=== PATIENT | male | born 2000 ===

== ENCOUNTER 2024-04-10 15:13 | Outpatient (AMB) | payer OTHER, SELFPAY ==
--- NOTE | 2024-04-10 15:14 | MHC.OFFWIV ---
Intake Vital Signs 04/10/24 15:15 Height 5 ft 11 in Weight 214 lb BMI 29.8 BP 128/86 Blood Pressure Location Lt brachial Position Sitting Pulse 93 Pulse Source Pulse Oximeter Temp 98.5 F Temp Source Oral Pulse Oximetry (%) 96 Oxygen Delivery Method Room Air Intake Visit Reasons: Persistent cough Intake Note: pt c/o persistent cough. Ongoing for since 04/01. Progressively getting worse Patient Tobacco Use Status: Never used Tobacco Allergies No Known Allergies Allergy (Verified 04/10/24 15:15) HPI HPI Comments History of Present Illness Details Patient is a 23-year-old male complaining of a cough since April 01. He states his cough is so bad for the last few nights that he has actually vomited because he can not stop coughing. He states he also has a headache and some head congestion. He denies any fevers, shortness of breath or chest pain. He denies any sinus pain or ear pain PFSH Social History Patient Tobacco Use Status: Never used Tobacco Review of Systems Const All systems reviewed & are unremarkable except as noted in HPI and below Physical Exam Vital Signs: Last Vital Signs Temp 98.5 F 04/10/24 15:15 Pulse 93 04/10/24 15:15 BP 128/86 04/10/24 15:15 Pulse Ox 96 04/10/24 15:15 Oxygen Delivery Method Room Air 04/10/24 15:15 BMI result Body Mass Index 29.8 Const General: cooperative, healthy appearing, comfortable and no acute distress Orientation/consciousness: patient oriented x3 Limitations: no limitations HEENT Head: Yes normal to inspection Ears: hearing grossly normal bilaterally, external ears normal and TM's normal bilaterally General nose exam: Normal external nose present, Normal nares present and No nasal discharge present Face and sinus: Yes normal facial exam and Yes sinuses nontender Mouth: Normal oral and palatal mucosa present and moist mucous membranes Throat: Yes tonsils normal, Yes uvula midline and Yes posterior oropharynx abnormal (Erythema) Eyes General: appearance normal, both eyes and all related structures Neck Neck: Yes normal visual inspection Resp Effort & Inspection: normal respiratory effort, able to speak in complete sentences, Actively coughing, no respiratory distress, not tachypneic, no tripod positioning and no use of accessory muscles Auscultation: clear to auscultation bilaterally Cardio Rate: regular rate Rhythm: regular rhythm Heart sounds: normal S1 and S2 Skin General skin exam: no rashes or lesions noted Neuro General: patient oriented x3 Extrem General: Yes normal to inspection and Yes no clubbing, cyanosis or edema Assessment & Plan Assessment & Plan (1) Atypical pneumonia: Code(s): J18.9 - Pneumonia, unspecified organism Plan: Educated patient to take [id number] medications to treat his symptoms, also explained how to use inhaler when he has coughing fits. We will send Z-Ivan as this sounds like an atypical pneumonia Medications: New albuterol sulfate 90 mcg/actuation 2 puffs inhalation Q6H PRN 8.5 grams 0RF shortness of breath or wheezing or cough azithromycin For 250 mg dose pack: take 500 mg today (day 1), then 250 mg for 4 days (days 2-5) PO 6 tabs 0RF Coding Level of Care Code New Pt Level 3 (23414) Diagnoses Atypical pneumonia J18.9
[2024-04-10 15:15] VITALS: BP 128/86; PULSE 93; TEMP 36.9; O2SAT 96; BMI 29.8
== END 2024-04-10 15:50 | disposition home or self-care (01) ==
PROVIDERS: Visit Provider Physician Assistant
DX: J18.9 Pneumonia, unspecified organism (principal)
CPT/HCPCS: 99203